=== PATIENT | male | born 1975 | race African-American/Black ===

== ENCOUNTER 2019-04-05 22:15 | Emergency (ER) | payer SELFPAY ==
[~2019-04-05] VITALS: Ht 182.9 cm; Wt 93.0 kg
[2019-04-05 22:36] VITALS: BP 118/66
--- NOTE | 2019-04-05 22:36 | NUR ---
AMBULATED TO ER BED 4
--- NOTE | 2019-04-05 22:40 | NUR ---
43 Y/O MALE C/O FEVER, COUGH X 1 WEEK. PT STATES HE WAS HOSPITALIZED A WEEK AGO FOR PNA. PT STATESHES BEEN HAVING FEVER FOR A 1 WEEK AND TAKEN EXTRA STRENGTH TYLENOL 1 DAY AGO. COUGH IS PRODUCTIVE . LUNG SOUNDS CLEAR ALL THORUGHOUT. NO RESP DISTRESS NOTED. SPO2 100% RA. BREATHING IS UNLABORED AND EVEN. NO SOB. NO USE OF ACCESSORY MUSCLE. VSS. HEART SOUND S1S2 PRESENT. A & O X4. PT HAS SILVESTRE AND NECK PAIN AND RATES IT 10/10 AND DESCRIBES IT THROBBING. DENIES ANY NV,D. RUNNY NOSE PRESENT. NKA PMH: PNA.
[2019-04-05 23:01] VITALS: BP 118/66
--- NOTE | 2019-04-05 23:01 | NUR ---
Patient discharged with v/s stable. Written and verbal after care instructions given and explained. Patient alert, oriented and verbalized understanding of instructions. Ambulatory with steady gait. All questions addressed prior to discharge. ID band removed. Patient advised to follow up with PMD. Rx of PREDNISONE, MOTRIN given. Patient educated on indication of medication including possible reaction and side effects. Opportunity to ask questions provided and answered.
== END 2019-04-05 23:01 | disposition home or self-care (01) ==
LOC: MED 22:15
DX: R05 Cough (principal); R50.9 Fever, unspecified; J34.89 Other specified disorders of nose and nasal sinuses
CPT/HCPCS: 99281

== ENCOUNTER 2019-05-15 06:55 | Emergency (ER) | payer SELFPAY ==
[~2019-05-15] VITALS: Ht 188 cm; Wt 93.0 kg
[2019-05-15 07:00] VITALS: BP 150/90
--- NOTE | 2019-05-15 07:00 | NUR ---
to bed # 08 ambulatory
--- NOTE | 2019-05-15 07:15 | NUR ---
43/M STATES HE WAS TAKING A "MEDICATION FOR MY IMMUNE SYSTEM" A FEW YEARS AGO BUT STOPPED AND IS REQUESTING THE MED NOW. DOES NOT KNOW NAME OF MED. DENIES PMHX. STATES "I HAVE A PAIN IN MY IMMUNE SYSTEM. I NEED THE MED TO CLEAN OUT MY IMMUNE SYSTEM AND CLEAN OUT INFECTIONS".
--- NOTE | 2019-05-15 07:50 | NUR ---
DR HUFFMAN AT BEDSIDE
--- NOTE | 2019-05-15 08:02 | NUR ---
Patient discharged with v/s stable. Written and verbal after care instructions given and explained. Patient alert, oriented and verbalized understanding of instructions. Ambulatory with steady gait. All questions addressed prior to discharge. ID band removed. Patient advised to follow up with PMD. INFORMATION GIVEN FOR OUTPATIENT CLINIC. Rx of MOTRIN given. Patient educated on indication of medication including possible reaction and side effects. Opportunity to ask questions provided and answered.
[2019-05-15 08:03] VITALS: BP 150/90
== END 2019-05-15 08:02 | disposition home or self-care (01) ==
LOC: MED 06:55
DX: G89.4 Chronic pain syndrome (principal); R03.0 Elevated blood-pressure reading, without diagnosis of hypertension; F12.10 Cannabis abuse, uncomplicated; Z76.0 Encounter for issue of repeat prescription
CPT/HCPCS: 99282

== ENCOUNTER 2020-11-03 00:35 | Emergency (ER) | payer MEDICAID ==
[~2020-11-03] VITALS: Ht 170.2 cm; Wt 70.3 kg
[2020-11-03 00:43] VITALS: BP 123/93
[2020-11-03 03:20] LABS: BARBITURATE, URINE NEGATIVE ng/ml (NEG <=200); BENZODIAZEPINE, URINE NEGATIVE ng/mL (NEG <=200); CANNABINOID, URINE NEGATIVE ng/mL (NEG <=50); COCAINE, URINE NEGATIVE ng/mL (NEG <=300); OPIATE, URINE NEGATIVE ng/mL (NEG <=2000); PHENCYCLIDINE SCREEN,URINE NEGATIVE ng/mL (NEG <=25)
--- NOTE | 2020-11-03 03:45 | NUR ---
PATIENT LEFT WITHOUT BEING SEEN BY DR. HARPER. NO FURTHER CARE PROVIDED FOR PATIENT.
--- NOTE | 2020-11-03 04:09 | NUR ---
TO CARMEN Sood
[2020-11-03 04:45] VITALS: BP 118/87
--- NOTE | 2020-11-03 04:45 | NUR ---
Patient discharged with v/s stable. Written and verbal after care instructions given and explained. Patient verbalized understanding. Ambulatory with steady gait. All questions addressed prior to discharge. Advised to follow up with PMD.
== END 2020-11-03 04:45 | disposition home or self-care (01) ==
LOC: MED 00:35
DX: Z02.83 Encounter for blood-alcohol and blood-drug test (principal)
CPT/HCPCS: 80305; 99283